=== PATIENT | male | born 1935 | race African-American/Black ===

== ENCOUNTER 2021-09-04 22:24 | Inpatient (IN) | payer MEDICARE ==
[2021-09-04] MEDS ORDERED: Iothalamate Meglumine 60% 50 ML VIAL FS ONE (22:43)
[2021-09-04] MEDS ORDERED: Piperacillin/Tazobactam 4.5 GM VIAL ONE (22:43)
[2021-09-04] MEDS ORDERED: Ketorolac Tromethamine 30 MG/ML VIAL ONE (22:47)
[2021-09-04] MEDS ORDERED: Ondansetron PF 4 MG/2 ML Vial ONE ×2 (22:47→23:28)
[2021-09-04] MEDS ORDERED: Acetaminophen 500 MG TAB ONE (22:54)
[2021-09-04] MEDS ORDERED: Fentanyl 100 MCG/2 ML VIAL ONE (23:12)
[2021-09-04 23:15] LABS: Hemoglobin 11.8 g/dL (14.0-18.0); Mean Corpuscular HGB CONC 33.5 g/dL (32.0-36.0); Mean Corpuscular Hemoglobin 28.4 pg (27.0-31.0); Mean Platelet Volume 6.9 fL (7.4-10.4); Platelet Count 232 thou/uL (130-400); RBC Distribution Width 15.7 % (11.5-14.5); Red Blood Cell (RBC) Count 4.17 mill/uL (4.70-6.10); White Blood Cell (WBC) Count 10.2 thou/uL (4.8-10.8)
[2021-09-04 23:25] LABS: INR-International Normal Ratio 1.2; Prothrombin Time 15.3 sec (12.0-14.7)
[2021-09-04 23:26] LABS: PTT 39.3 sec (22.9-36.1)
[2021-09-04] MEDS ORDERED: Succinylcholine 200 MG/10 ml SYRINGE FS ONE (23:28)
[2021-09-04] MEDS ORDERED: Rocuronium Bromide 10 MG/ML (10ML VIAL) ONE (23:28)
[2021-09-04] MEDS ORDERED: Glycopyrrolate 0.2 MG/ML 5 ML SYRINGE ONE (23:28)
[2021-09-04] MEDS ORDERED: Lidocaine 1% PF 5 ML VIAL ONE (23:28)
[2021-09-04 23:30] LABS: Band 7 % (5-11); Hypochromia SLIGHT = 6-15 cells (100X) (0-5/hpf); Lymphocytes 9 % (21-51); MDiff Complete? YES; Monocytes 1 % (0-10); Neutrophil 83 % (42-75); Platelet Morphology Comment Appears Adequate
[2021-09-04 23:48] LABS: ALT (SGPT) Less than 7 U/L (8-55); AST (SGOT) 16 U/L (5-34); Albumin 3.3 g/dL (3.4-4.8); Alkaline Phosphatase 60 U/L (40-110); Anion Gap 14 mmol/L (10-20); BUN (Urea Nitrogen) 20 mg/dL (8.4-25.7); Calc. Creatinine Clearance 0 mL/min (70-130); Calcium 8.7 mg/dL (7.8-10.44); Carbon Dioxide 23 mmol/L (23-31); Chloride 104 mmol/L (98-107); Globulin 1.9 g/dL (2.4-3.5); Glucose 131 mg/dL (83-110); Lipase 13 U/L (8-78); Magnesium 1.1 mg/dL (1.6-2.6); Protein, Total 5.2 g/dL (5.8-8.1); Sodium 137 mmol/L (136-145)
[2021-09-05 00:24] LABS: CKMB 0.8 ng/mL (0-6.6)
[2021-09-05] MEDS ORDERED: Ondansetron PF 4 MG/2 ML Vial IVP PRN (02:07)
[2021-09-05] MEDS ORDERED: Acetaminophen 650 MG Suppository PR PRN (02:07)
[2021-09-05 02:20] LABS: Lactic Acid 2.6 mmol/L (0.5-2.2)
[2021-09-05] MEDS ORDERED: Sodium Chloride 0.9% 500 ML IV SCH ×2 (02:30→03:30)
[2021-09-05] MEDS ORDERED: HumaLOG 300 UNITS/3 ML VIAL SC PRN ×2 (02:54)
[2021-09-05] MEDS ORDERED: Dextrose 50% Abboject 50 ML SYRINGE SLOW IVP PRN (02:54)
[2021-09-05] MEDS ORDERED: Dextrose 5% in Water 1,000 ML IV PRN (02:54)
[2021-09-05] MEDS: Piperacillin/Tazobactam 3.375 GM in Sodium Chloride 0.9% 100 ML IVPB SCH ×3 (03:22→18:13)
[2021-09-05 03:45] LABS: Anion Gap 13 mmol/L (10-20); BUN (Urea Nitrogen) 24 mg/dL (8.4-25.7); Calc. Creatinine Clearance 28 mL/min (70-130); Calcium 7.7 mg/dL (7.8-10.44); Carbon Dioxide 20 mmol/L (23-31); Chloride 106 mmol/L (98-107); Glucose 112 mg/dL (83-110); Potassium 3.6 mmol/L (3.5-5.1); Sodium 135 mmol/L (136-145)
[2021-09-05] MEDS ORDERED: Sodium Chloride 0.9% 1,000 ML IV SCH (03:45)
[2021-09-05 03:50] LABS: Band 18 % (5-11); Hypochromia SLIGHT = 6-15 cells (100X) (0-5/hpf); Lymphocytes 5 % (21-51); MDiff Complete? YES; Mean Corpuscular HGB CONC 33.7 g/dL (32.0-36.0); Monocytes 6 % (0-10); Neutrophil 71 % (42-75); Platelet Count 202 thou/uL (130-400); Platelet Morphology Comment Appears Adequate; RBC Distribution Width 15.6 % (11.5-14.5); Red Blood Cell (RBC) Count 3.79 mill/uL (4.70-6.10); White Blood Cell (WBC) Count 10.9 thou/uL (4.8-10.8)
[2021-09-05 04:10] LABS: Troponin I 0.409 ng/mL (< 0.028)
[2021-09-05 05:03] VITALS: BMI 26.5
[2021-09-05] MEDS: Acetaminophen 325 MG TAB PO PRN ×2 (09:03→21:06)
[2021-09-05] MEDS ORDERED: Furosemide 20 MG/2 ML VIAL SLOW IVP SCH (09:15)
[2021-09-05] MEDS: HYDROcodone/Acetaminophen 5/325 mg Tablet PO PRN ×3 (09:37→19:17)
[2021-09-05 10:39] LABS: Lactic Acid 3.4 mmol/L (0.5-2.2)
[2021-09-05] MEDS: Atorvastatin Calcium 10 MG TAB PO SCH (21:06)
[2021-09-05] MEDS: guaiFENesin/DM ER PO PRN (21:56)
[2021-09-06] MEDS: Piperacillin/Tazobactam 3.375 GM in Sodium Chloride 0.9% 100 ML IVPB SCH ×3 (03:43→18:01)
[2021-09-06 04:27] LABS: Anion Gap 21 mmol/L (10-20); BUN (Urea Nitrogen) 36 mg/dL (8.4-25.7); Calc. Creatinine Clearance 20 mL/min (70-130); Calcium 7.7 mg/dL (7.8-10.44); Carbon Dioxide 17 mmol/L (23-31); Chloride 106 mmol/L (98-107); Glucose 167 mg/dL (83-110); Potassium 4.4 mmol/L (3.5-5.1); Sodium 140 mmol/L (136-145)
[2021-09-06 04:34] LABS: Hemoglobin 11.4 g/dL (14.0-18.0); Mean Corpuscular Volume 86.8 fL (78.0-98.0); Mean Platelet Volume 7.8 fL (7.4-10.4); Platelet Count 199 thou/uL (130-400); RBC Distribution Width 16.1 % (11.5-14.5); Red Blood Cell (RBC) Count 4.36 mill/uL (4.70-6.10); White Blood Cell (WBC) Count 14.3 thou/uL (4.8-10.8)
[2021-09-06 04:49] LABS: Band 21 % (5-11); Hypochromia SLIGHT = 6-15 cells (100X) (0-5/hpf); Lymphocytes 7 % (21-51); MDiff Complete? YES; Metamyelocyte 3 % (0-0); Monocytes 3 % (0-10); Neutrophil 65 % (42-75); Ovalocytes SLIGHT = 2-5 cells (100X) (0-1/hpf); Platelet Morphology Comment Appears Adequate; Reactive Lymphocytes 1 % (0-10)
[2021-09-06] MEDS: HYDROcodone/Acetaminophen 5/325 mg Tablet PO PRN ×3 (08:53→20:10)
[2021-09-06] MEDS: Tamsulosin HCl 0.4 MG CAP PO SCH (08:54)
[2021-09-06] MEDS ORDERED: Sodium Bicarbonate 150 MEQ in Dextrose 5% in Water 1,000 ML IV SCH (10:00)
[2021-09-06 10:29] LABS: Bilirubin Negative (Negative); Blood, Urine 3+ (Negative); Clarity Turbid (Clear); Glucose, Urine (Dipstick) Normal (Negative); Ketone, Urine Negative (Negative); Leukocyte 500 Leu/uL (Negative); Nitrite Negative (Negative); Protein, Urine (Dipstick) 100 mg/dL (Neg-Trace); RBC/HPF Greater than 50 HPF (0-3); Specific Gravity, Urine 1.019 (1.002-1.036); Squamous Epithelial None Seen HPF (0-3); Urobilinogen Normal mg/dL (Less than 2); pH, Urine 5.5 (5.0-9.0)
[2021-09-06 10:39] LABS: Bacteria/HPF 1+ HPF (None Seen)
[2021-09-06] MEDS: Sodium Bicarbonate 150 MEQ in Dextrose 5% in Water 1,000 ML IV SCH ×2 (10:43→22:48)
[2021-09-06 10:55] LABS: Creatinine, Urine 81.56 mg/dL (63-166)
[2021-09-06] MEDS ORDERED: Senokot S 8.6-50 MG TAB PO SCH (11:00)
[2021-09-06] MEDS: Senokot S 8.6-50 MG TAB PO SCH ×2 (11:06→20:10)
[2021-09-06] MEDS: Atorvastatin Calcium 10 MG TAB PO SCH (20:10)
[2021-09-07] MEDS: Piperacillin/Tazobactam 3.375 GM in Sodium Chloride 0.9% 100 ML IVPB SCH ×3 (03:05→17:55)
[2021-09-07 04:27] LABS: Anion Gap 15 mmol/L (10-20); BUN (Urea Nitrogen) 43 mg/dL (8.4-25.7); Calc. Creatinine Clearance 22 mL/min (70-130); Calcium 7.6 mg/dL (7.8-10.44); Carbon Dioxide 27 mmol/L (23-31); Chloride 101 mmol/L (98-107); Glucose 157 mg/dL (83-110); Magnesium 1.4 mg/dL (1.6-2.6); Potassium 3.8 mmol/L (3.5-5.1); Sodium 139 mmol/L (136-145)
[2021-09-07 04:31] LABS: Albumin 2.6 g/dL (3.4-4.8); Phosphorus 3.3 mg/dL (2.3-4.7)
[2021-09-07 04:34] LABS: Band 12 % (5-11); Hemoglobin 10.7 g/dL (14.0-18.0); Hypochromia SLIGHT = 6-15 cells (100X) (0-5/hpf); Lymphocytes 3 % (21-51); MDiff Complete? YES; Mean Corpuscular HGB CONC 33.1 g/dL (32.0-36.0); Mean Corpuscular Hemoglobin 28.2 pg (27.0-31.0); Mean Corpuscular Volume 85.1 fL (78.0-98.0); Mean Platelet Volume 7.6 fL (7.4-10.4); Monocytes 6 % (0-10); Neutrophil 79 % (42-75); Platelet Count 181 thou/uL (130-400); Platelet Morphology Comment Appears Adequate; RBC Distribution Width 15.8 % (11.5-14.5); Red Blood Cell (RBC) Count 3.81 mill/uL (4.70-6.10); White Blood Cell (WBC) Count 12.4 thou/uL (4.8-10.8)
[2021-09-07] MEDS: HYDROcodone/Acetaminophen 5/325 mg Tablet PO PRN (05:21)
[2021-09-07] MEDS: guaiFENesin/DM ER PO PRN (05:23)
[2021-09-07] MEDS ORDERED: Magnesium Sulfate 4 GM in Sodium Chloride 0.9% 250 ML 250 ML IVPB SCH (08:00)
[2021-09-07] MEDS: Tamsulosin HCl 0.4 MG CAP PO SCH (09:29)
[2021-09-07] MEDS: Senokot S 8.6-50 MG TAB PO SCH ×2 (09:29→21:37)
[2021-09-07] MEDS: Acetaminophen 325 MG TAB PO PRN (09:29)
[2021-09-07] MEDS: Ondansetron ODT 4 MG TAB PO PRN (11:28)
[2021-09-07] MEDS: Lactated Ringer's 1,000 ML IV SCH ×2 (12:52→21:50)
[2021-09-07] MEDS: Atorvastatin Calcium 10 MG TAB PO SCH (21:37)
[2021-09-08] MEDS: Chloraseptic Spray 180 ml Bottle PO SCH ×6 (03:43→21:01)
[2021-09-08] MEDS: Piperacillin/Tazobactam 3.375 GM in Sodium Chloride 0.9% 100 ML IVPB SCH (03:44)
[2021-09-08] MEDS ORDERED: FLU VACC QS2021-22(65YR UP)/PF 240 MCG/0.7 ML SYRINGE IM ONE (09:00)
[2021-09-08] MEDS ORDERED: Ergocalciferol 1.25 MG(50,000 UNITS) CAP PO SCH (09:00)
[2021-09-08 09:15] LABS: Albumin 2.6 g/dL (3.4-4.8); Anion Gap 16 mmol/L (10-20); BUN (Urea Nitrogen) 46 mg/dL (8.4-25.7); BUN/Creatinine Ratio 19.25; Calc. Creatinine Clearance 25 mL/min (70-130); Calcium 8.2 mg/dL (7.8-10.44); Carbon Dioxide 25 mmol/L (23-31); Chloride 101 mmol/L (98-107); Glucose 108 mg/dL (83-110); Magnesium 2.3 mg/dL (1.6-2.6); Phosphorus 2.7 mg/dL (2.3-4.7); Potassium 3.6 mmol/L (3.5-5.1); Sodium 138 mmol/L (136-145)
[2021-09-08] MEDS: Senokot S 8.6-50 MG TAB PO SCH ×2 (09:47→21:01)
[2021-09-08] MEDS: Tamsulosin HCl 0.4 MG CAP PO SCH (09:47)
[2021-09-08] MEDS: cefTRIAXone\\ROCEPHIN 2 GM in Sodium Chloride 0.9% 100 ML IVPB SCH (09:47)
[2021-09-08] MEDS: Ondansetron ODT 4 MG TAB PO PRN (10:21)
[2021-09-08] MEDS: Lactated Ringer's 1,000 ML IV SCH (11:58)
[2021-09-08] MEDS ORDERED: Metoprolol Tartrate 5 MG/5 ML VIAL IVP PRN (12:30)
[2021-09-08] MEDS ORDERED: Diltiazem 125 MG in Sodium Chloride 0.9% 100 ML IVPB SCH ×2 (13:00→14:00)
[2021-09-08] MEDS ORDERED: Magnesium Citrate 300 ML BOT PO SCH (13:00)
[2021-09-08] MEDS ORDERED: Bisacodyl 10 MG SUPP PR PRN (16:32)
[2021-09-08 16:39] LABS: Bilirubin Negative (Negative); Blood, Urine 3+ (Negative); Clarity Clear (Clear); Glucose, Urine (Dipstick) Normal (Negative); Ketone, Urine 40 mg/dL (Negative); Leukocyte 500 Leu/uL (Negative); Nitrite Negative (Negative); Protein, Urine (Dipstick) 70 mg/dL (Neg-Trace); RBC/HPF 21-50 HPF (0-3); Specific Gravity, Urine 1.022 (1.002-1.036); Squamous Epithelial None Seen HPF (0-3); Urobilinogen Normal mg/dL (Less than 2)
[2021-09-08 16:55] LABS: Bacteria/HPF Rare-Few HPF (None Seen)
[2021-09-08] MEDS: Amiodarone 200 MG TAB PO SCH (21:01)
[2021-09-08] MEDS: Atorvastatin Calcium 10 MG TAB PO SCH (21:02)
[2021-09-09] MEDS: Chloraseptic Spray 180 ml Bottle PO SCH ×6 (03:37→21:00)
[2021-09-09 05:43] LABS: Band 1 % (5-11); Hypochromia SLIGHT = 6-15 cells (100X) (0-5/hpf); Lymphocytes 12 % (21-51); MDiff Complete? YES; Mean Corpuscular Hemoglobin 27.7 pg (27.0-31.0); Mean Platelet Volume 7.4 fL (7.4-10.4); Monocytes 14 % (0-10); Neutrophil 73 % (42-75); Platelet Count 202 thou/uL (130-400); Platelet Morphology Comment Appears Adequate; RBC Distribution Width 15.7 % (11.5-14.5); Red Blood Cell (RBC) Count 3.62 mill/uL (4.70-6.10); White Blood Cell (WBC) Count 12.7 thou/uL (4.8-10.8)
[2021-09-09 05:44] LABS: Albumin 2.6 g/dL (3.4-4.8); Anion Gap 13 mmol/L (10-20); BUN (Urea Nitrogen) 38 mg/dL (8.4-25.7); BUN/Creatinine Ratio 19.59; Calc. Creatinine Clearance 31 mL/min (70-130); Calcium 8.3 mg/dL (7.8-10.44); Carbon Dioxide 26 mmol/L (23-31); Chloride 103 mmol/L (98-107); Glucose 122 mg/dL (83-110); Phosphorus 1.9 mg/dL (2.3-4.7); Potassium 3.4 mmol/L (3.5-5.1); Sodium 139 mmol/L (136-145)
[2021-09-09] MEDS ORDERED: Potassium Phosphate 15 MMOL in Sodium Chloride 0.9% 250 ML 250 ML IVPB SCH (07:00)
[2021-09-09] MEDS: cefTRIAXone\\ROCEPHIN 2 GM in Sodium Chloride 0.9% 100 ML IVPB SCH (08:52)
[2021-09-09] MEDS: Senokot S 8.6-50 MG TAB PO SCH ×2 (08:53→20:50)
[2021-09-09] MEDS: Tamsulosin HCl 0.4 MG CAP PO SCH (08:54)
[2021-09-09] MEDS: Amiodarone 200 MG TAB PO SCH ×2 (08:54→20:50)
[2021-09-09] MEDS: Atorvastatin Calcium 10 MG TAB PO SCH (20:50)
[2021-09-09] MEDS ORDERED: Rosuvastatin 10 MG TAB PO SCH (21:00)
[2021-09-10] MEDS: Chloraseptic Spray 180 ml Bottle PO SCH ×4 (02:51→13:19)
[2021-09-10 05:10] LABS: Albumin 2.6 g/dL (3.4-4.8); Anion Gap 16 mmol/L (10-20); BUN (Urea Nitrogen) 35 mg/dL (8.4-25.7); BUN/Creatinine Ratio 22.58; Calc. Creatinine Clearance 39 mL/min (70-130); Carbon Dioxide 24 mmol/L (23-31); Chloride 102 mmol/L (98-107); Glucose 113 mg/dL (83-110); Phosphorus 2.1 mg/dL (2.3-4.7); Potassium 3.7 mmol/L (3.5-5.1); Sodium 138 mmol/L (136-145)
[2021-09-10] MEDS: Amiodarone 200 MG TAB PO SCH (09:03)
[2021-09-10] MEDS: Senokot S 8.6-50 MG TAB PO SCH (09:03)
[2021-09-10] MEDS: Tamsulosin HCl 0.4 MG CAP PO SCH (09:04)
[2021-09-10] MEDS: cefTRIAXone\\ROCEPHIN 2 GM in Sodium Chloride 0.9% 100 ML IVPB SCH (09:04)
[2021-09-10 12:38] VITALS: BP 169/95; TEMP 97.5
== END 2021-09-10 14:27 | disposition home health service (06) | DRG 854 ==
LOC: ERS 22:24 → SDC/OP 23:57 → CCU 09-05 00:38 → IMCU/EMU 09-06 23:43 → 2NO 09-07 23:04
PROVIDERS: ADMIT Urology; ATTEND Hospitalist
PROC: 0T768DZ Dilation of Right Ureter with Intraluminal Device, Via Natural or Artificial Opening Endoscopic (ICD-10-PCS; principal; 2021-09-05)
PROC: BT1D1ZZ Fluoroscopy of Right Kidney, Ureter and Bladder using Low Osmolar Contrast (ICD-10-PCS; 2021-09-05)
PROC: 0T9B80Z Drainage of Bladder with Drainage Device, Via Natural or Artificial Opening Endoscopic (ICD-10-PCS; 2021-09-05)
DX: A41.50 Gram-negative sepsis, unspecified (principal); N17.9 Acute kidney failure, unspecified; I13.0 Hypertensive heart and chronic kidney disease with heart failure and stage 1 through stage 4 chronic kidney disease, or unspecified chronic kidney disease; E87.2 Acidosis; N13.6 Pyonephrosis; R65.20 Severe sepsis without septic shock; J44.9 Chronic obstructive pulmonary disease, unspecified; E78.5 Hyperlipidemia, unspecified; E11.22 Type 2 diabetes mellitus with diabetic chronic kidney disease; N18.2 Chronic kidney disease, stage 2 (mild); I50.9 Heart failure, unspecified; I25.10 Atherosclerotic heart disease of native coronary artery without angina pectoris; E55.9 Vitamin D deficiency, unspecified; D63.1 Anemia in chronic kidney disease; I35.0 Nonrheumatic aortic (valve) stenosis; E87.6 Hypokalemia; I48.0 Paroxysmal atrial fibrillation; K59.00 Constipation, unspecified; Z85.46 Personal history of malignant neoplasm of prostate; Z87.891 Personal history of nicotine dependence; Z90.79 Acquired absence of other genital organ(s); Z98.890 Other specified postprocedural states
CPT/HCPCS: 36415; 36416; 71045; 74018; 74176; 74420; 80048; 80053; 80069; 81001; 82040; 82306; 82553; 82570; 83605; 83690; 83735; 83880; 84100; 84156; 84300; 84443; 84484; 84540; 85025; 85610; 85730; 87040; 87077; 87086; 87149; 87186; 93005; 93010; 93306; 94760; 96365; 96375; C2617; J0696; J1885; J1940; J2405; J2543; J3010; J3475; J3490; J7030; J7050; J7070; J7120; J7620; Q0162; Q9961-U8